=== PATIENT | female | born 1970 | race Caucasian/White ===

== ENCOUNTER 2017-03-02 09:42 | Emergency (ER) | payer OTHER ==
[~2017-03-02] VITALS: Ht 160 cm; Wt 101.2 kg
[~2017-03-02 09:42] MED LIST: BUPROBAN150 MG PO; DESONIDE 0.05%15 GM TOP; DESVENLAFAXINE50 M1 PO; GARCINIA CAMBO1 EACH PO; GLUCOPHAGE1000 MG PO; HAIR, SKIN & N1 EACH PO; LINZESS290 MCG PO; MICARDIS20 MG PO; NAPROSYN500 MG PO; PROTONIX40 MG PO; VENTOLIN HFA8 GM INH; VICTOZA 2-0.6 MG/0.1 SUBCUT; VITAMIN B COMP1 EACH PO
== END 2017-03-02 11:31 | disposition short-term general hospital (02) ==
LOC: ER 09:42
DX: K21.9 Gastro-esophageal reflux disease without esophagitis (principal); E11.9 Type 2 diabetes mellitus without complications; E66.9 Obesity, unspecified; F32.9 Major depressive disorder, single episode, unspecified; Z90.49 Acquired absence of other specified parts of digestive tract; Z90.710 Acquired absence of both cervix and uterus; Z98.890 Other specified postprocedural states; Z87.891 Personal history of nicotine dependence; Z79.891 Long term (current) use of opiate analgesic; Z79.84 Long term (current) use of oral hypoglycemic drugs; Z79.899 Other long term (current) drug therapy